=== PATIENT | female | born 1955 | race Two or more races ===

== ENCOUNTER 2022-03-28 11:26 | Outpatient (REF) | payer OTHER, SELFPAY ==
[2022-03-28 14:11] LABS: Estimated Average Glucose 203 mg/dL; Hemoglobin A1c % 8.7 %
[2022-03-28 14:24] LABS: Anion Gap 14 (12-20); Blood Urea Nitrogen 17 mg/dL (9-16); Carbon Dioxide 27 mmol/L (22-29); Chloride 106 mmol/L (96-108); Estimated Glomerular Filt Rate > 60; Glucose Random 126 mg/dL (60-115); Potassium 4.5 mmol/L (3.3-5.1); Sodium 142 mmol/L (135-145)
[2022-03-28 14:33] LABS: Thyroid Stimulating Hormone 1.42 uIU/mL (0.32-4.0)
[2022-03-28 14:48] LABS: Folate 9.3 ng/mL (> or = 4.0); Vitamin B12 427 pg/mL (200-900)
[2022-03-28 15:04] LABS: T4 Thyroxine 12.1 ug/dL (4.5-12.0)
== END 2022-03-28 11:27 | disposition home or self-care (01) ==
LOC: HO.HMGCLDS 11:26
PROVIDERS: Visit Provider Psychiatry & Neurology Neurology
DX: G31.84 Mild cognitive impairment of uncertain or unknown etiology (principal)
CPT/HCPCS: 36415; 80051; 82565; 82607; 82746; 82947; 83036; 84436; 84443; 84520